=== PATIENT | male | born 1985 | race Caucasian/White ===

== ENCOUNTER 2024-07-25 16:11 | Outpatient (CLI) | payer OTHER, SELFPAY ==
[2024-07-25 14:11] LABS: HCT 42.5 % (40.0-50.0); HGB 14.5 g/dL (13.5-17.5); MCH 28.4 pg (27.0-33.0); MCHC 34.1 % (32.0-36.0); MCV 83 fL (80-95); Platelet Count 260 10^3/uL (130-400); RDW 12.9 % (11.8-14.1); RDW-SD 39.2 fL; WBC 6.83 10^3/uL (4.4-10.8)
[2024-07-25 14:27] LABS: Hemoglobin A1C 5.5 % (<5.7)
[2024-07-25 17:35] LABS: ALT 41 U/L (16-63); AST 21 U/L (15-37); Albumin 3.9 g/dL (3.4-5.0); Alkaline Phosphatase 92 U/L (46-116); Anion Gap 8.6 mmol/L (3-11); BUN 21 mg/dL (7-18); Bilirubin, Total 0.3 mg/dL (0.2-1.0); CO2 27.4 mmol/L (21.0-32.0); CREATININE 0.9 mg/dL (0.70-1.30); Calcium 9.6 mg/dL (8.5-10.1); Calculated LDL 110 mg/dL (<100); Chloride 101 mmol/L (98-107); Cholesterol 219 mg/dL (<200); Estimated GFR 112.81 (mL/min/1.73m2); Glucose 86 mg/dL (74-106); HDL Cholesterol 40 mg/dL (>or=40); Potassium 4.2 mmol/L (3.5-5.1); Sodium 137 mmol/L (136-145); TSH (W/Ref FT4) 3.22 uIU/mL (0.36-3.74); Total Protein 7.9 g/dL (6.4-8.2); Triglyceride 346 mg/dL (<150)
[2024-07-26 12:19] LABS: HBs Antibody, Quant 64.4 mIU/mL (See Note); Hep B Surface Ab Positive (See Note); Hepatitis B Core Antibody Negative (Negative); Hepatitis B Surface Antigen Negative (Negative)
[2024-07-26 12:36] LABS: Hepatitis C Ab w Rflx HCV PCR Negative (Negative)
[2024-07-26 13:35] LABS: HIV-1/2 Ag & Ab Screen Negative (Negative)
== END 2024-07-25 16:12 | disposition home or self-care (01) ==
LOC: LBO 16:15
PROVIDERS: Visit Provider Nurse Practitioner Family
DX: Z00.00 Encounter for general adult medical examination without abnormal findings (principal)
CPT/HCPCS: 36415; 80053; 80061; 85027; 86704; 86706; 86709; 86803; 87340; 87389; 83036; 84443